=== PATIENT | male | born 1975 | race Two or more races ===

== ENCOUNTER 2018-06-02 10:49 | Emergency (ER) | payer OTHER ==
[~2018-06-02] VITALS: Ht 172.7 cm; Wt 97.5 kg
[2018-06-02 11:00] VITALS: BP 148/102
[2018-06-02] MEDS ORDERED: CEPHALEXIN500 MG ORAL (11:28)
[2018-06-02 11:37] VITALS: BP 148/102
--- NOTE | 2018-06-04 06:59 | Emergency Room Report ---
History of Present Illness General Chief Complaint: Eye Problems Source: Patient Present Illness HPI 43-year-old male presents ED for evaluation. States that a few days ago at work he scratched himself on the left eyelid by mistake. States there is pain and swelling to the left eyelid. Dull, 5 out of 10, nonradiating. Denies any photophobia or blurry vision. Denies any discharge. No other aggravating relieving factors. Denies any other associated symptoms Allergies: Coded Allergies: No Known Allergies (Unverified , 06/02/18) Patient History Past Medical History: none Past Surgical History: none Pertinent Family History: none Social History: Denies: smoking, alcohol use, drug use Immunizations: UTD Reviewed Nursing Documentation: PMH: Agreed; PSxH: Agreed Nursing Documentation-PMH Past Medical History: No Stated History Review of Systems All Other Systems: negative except mentioned in HPI Physical Exam Vital Signs Date Time Temp Pulse Resp B/P (MAP) Pulse Ox O2 Delivery O2 Flow Rate FiO2 06/02/18 10:53 98.2 96 18 148/102 95 Room Air 98.2 Sp02 EP Interpretation: reviewed, normal General Appearance: no apparent distress, alert, GCS 15, non-toxic Head: normocephalic Eyes: right eye normal inspection; left eye lid inflammation - L upper eyelid; bilateral eye PERRL, bilateral eye EOMI ENT: normal ENT inspection Neck: normal inspection Respiratory: normal inspection Cardiovascular #1: normal inspection Gastrointestinal: normal inspection Rectal: deferred Genitourinary: no CVA tenderness Musculoskeletal: normal inspection Neurologic: alert, oriented x3, responsive, motor strength/tone normal, sensory intact, speech normal Psychiatric: normal inspection Skin: normal inspection Lymphatic: normal inspection Medical Decision Making Diagnostic Impression: Primary Impression: Eyelid cellulitis Qualified Codes: H00.036 - Abscess of eyelid left eye, unspecified eyelid ER Course Hospital Course 43-year-old male presents to ED with redness, swelling to L eyelid Differential diagnoses include: Cellulitis, dermatitis, insect bite, abscess Clinical course Patient placed on stretcher. After initial history, physical exam reveals a male in no acute distress. On exam there is erythema and induration to the L eyelid. There is no fluctuance. There is no evidence of ocular involvement. Visual acuity intact. No scleral injection. No discharge. Discussed findings with patient. We will prescribe antibiotics. Warm compresses. Recommend close follow-up with ophthalmology Diagnosis - eyelid cellulitis stable and discharged to home with prescription for Keflex. warm compresses. Instructed to followup with PMD. Instructed return to ED if symptoms recur or worsen Last Vital Signs Date Time Temp Pulse Resp B/P (MAP) Pulse Ox O2 Delivery O2 Flow Rate FiO2 06/02/18 11:37 98.2 96 18 148/102 95 Room Air 98.2 Status: improved Disposition: HOME, SELF-CARE Condition: Stable Scripts Cephalexin* (KEFLEX*) 500 Mg Capsule 500 MG ORAL EVERY 6 HOURS for 7 Days, CAP Prov: Alban Curtis MD 06/02/18 Departure Forms: Return to Work Return to Work Date: Jun 03, 2018 Work Restrictions: None Patient Instructions: Blepharitis, [id number] Alban Curtis MD Jun 04, 2018 06:59
== END 2018-06-02 11:38 | disposition home or self-care (01) ==
LOC: EMR 11:23
DX: H00.036 Abscess of eyelid left eye, unspecified eyelid (principal)
CPT/HCPCS: 99283